=== PATIENT | male | born 2000 | race Caucasian/White ===

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

== ENCOUNTER 2021-10-05 18:14 | Emergency (ER) | payer OTHER, SELFPAY | END 2021-10-05 20:48 | disposition left against medical advice (07) | PROVIDERS: Emergency Provider Emergency Medicine; PCP Specialist | DX: S99.922A Unspecified injury of left foot, initial encounter (principal); X58.XXXA Exposure to other specified factors, initial encounter; Y93.9 Activity, unspecified; Y92.9 Unspecified place or not applicable; Y99.9 Unspecified external cause status ==

== ENCOUNTER 2021-10-06 12:22 | Emergency (ER) | payer OTHER, SELFPAY ==
--- NOTE | ~2021-10-06 | XR_ITS ---
EXAMINATION: XR FOOT, LEFT CLINICAL INFORMATION: Left foot injury COMPARISON: None TECHNIQUE: AP, lateral, and oblique views of the left foot. FINDINGS: The bones and soft tissues are normal. No fracture. Alignment is anatomic. Joint spaces are maintained. XR/XR foot LT min 3V IMPRESSION: Normal left foot.
[2021-10-06 13:34] VITALS: BP 127/73; PULSE 69; RESP 18; TEMP 36.8; O2SAT 97; BMI 27.2
--- NOTE | 2021-10-06 14:16 | ED.LOWEXIN ---
HPI - Extremity Injury (Lower) General Chief Complaint: Extremity Injury, Lower Stated Complaint: lt foot injury Time Seen by Provider: 10/06/21 14:16 Source: patient Mode of arrival: ambulatory Limitations: no limitations History of Present Illness HPI Narrative: 21 yo male presenting with left foot pain s/p basketball injury yesterday. He states when he was coming down he somehow landed really funny and a crisscross position of his legs. he had immediate pain to the top of his left foot and was unable to walk on it. He use ice and took some Motrin last night with some improvement. He woke up this morning with significant bruising to his left foot and some swelling as well. He came in for evaluation to make sure it is not broken. He is still unable to bear any weight on his left foot due to pain. He denies any numbness or tingling. No other injuries. MD complaint: foot injury Onset (ago): day(s) (1) Injury: Left: foot Type of Injury: blunt Place: street/outdoors Severity: moderate Severity scale (1-10): 7 Relieving factors: immobilization Exacerbating factors: weight bearing, movement and palpation Context: fall and jumping Associated symptoms: swelling and unable to bear weight Other symptoms: none Treatments prior to arrival: cold therapy Related Data Previous Rx's Medication Instructions Recorded ibuprofen 600 mg tablet 600 mg PO Q8H PRN #14 tab 10/06/21 Allergies Allergy/AdvReac Type Severity Reaction Status Date / Time amoxicillin [AMOXICILLIN] Allergy Intermediate RASH Verified 10/06/21 13:33 Review of Systems Review of Systems: Constitutional: No Fever, No Chills Cardiovascular: No Chest Pain, No SOB Gastrointestinal: No Nausea, No Vomiting Musculoskeletal: + joint pain, No Myalgias Skin: No Skin Lesions, No rash Neuro: No Weakness, No Numbness Psych: + Anxiety/Panic, No Depression Heme/Lymph: + Bruising PMFSH Past Medical History Medical History (Updated 10/06/21 @ 14:21 by GURPREET Lanza) No pertinent past medical history Social History Social History Advance Directives: No Advance Directives Information Provided: No Physical Exam Vital Signs: Vital Signs: Last Vital Signs Temp 98.2 F 10/06/21 13:34 Pulse 69 10/06/21 13:34 Resp 18 10/06/21 13:34 BP 127/73 10/06/21 13:34 Pulse Ox 97 10/06/21 13:34 Body Mass Index 27.2 Appearance: Alert. Oriented X3. No acute distress. HEENT: normal inspection CVS: Normal heart rate and rhythm. Pulses normal. Respiratory: No respiratory distress. Skin: Skin warm and dry. Normal skin color. Normal skin turgor. No rashes. Extremities: Left anterior foot with ecchymosis and swelling from great toe to the middle portion of the foot. Tenderness over the 1st and 2nd metatarsals. able to move all toes, capillary refill less and 3 seconds. Foot is warm and well perfused. No ankle tenderness or swelling. Neuro: Oriented X 3. No motor deficit. No sensory deficit. Unable to assess gait due to pain Course Course Course Narrative: 21-year-old male presents to the ER for evaluation of left anterior foot pain, swelling, bruising after falling during a basketball game yesterday. He is unable to bear weight. X-ray today shows no acute fracture. An Baltazar wrap was placed for compression and support. Will treat for sprain and have him follow-up with his doctor. Critical Care Time Critical Care Time Critical Care Time: No Discharge Plan Discharge Clinical Impression: Contusion of foot Qualifiers: Encounter type: initial encounter Laterality: left Qualified Code(s): S90.32XA - Contusion of left foot, initial encounter Patient Disposition: Home, Self-Care Instructions: Foot Contusion (ED) Additional Instructions: Your x-ray today was normal. Rest and elevate your foot when possible. Recommend BALTAZAR wrap for support and compression. Use ice several times per day for the next 48 hours. You may bear weight as tolerated. If pain is too severe, use crutches until better. Take Motrin and/or Tylenol as needed for pain. Follow up with your doctor as needed. Prescriptions: New ibuprofen 600 mg tablet 600 mg PO Q8H PRN (Reason: pain) Qty: 14 RF: 0 Stand Alone Forms: Work/School Release Interventions: ED Discharge Assessment Last Done: 10/06/21 14:38 Discharge Date/Time: 10/06/21 14:40
== END 2021-10-06 14:40 | disposition home or self-care (01) ==
PROVIDERS: Emergency Provider Emergency Medicine; PCP Specialist
DX: S90.32XA Contusion of left foot, initial encounter (principal); M79.672 Pain in left foot; Y93.67 Activity, basketball; Y92.310 Basketball court as the place of occurrence of the external cause; Y99.9 Unspecified external cause status
CPT/HCPCS: 73630; 99283

== ENCOUNTER 2025-05-20 23:16 | Emergency (ER) | payer OTHER, SELFPAY ==
[2025-05-20 23:37] VITALS: BP 114/57; PULSE 56; RESP 18; TEMP 36.7; O2SAT 98; BMI 24.7
[2025-05-21 02:01] VITALS: BP 111/71; PULSE 55; TEMP 36.6; O2SAT 97
--- NOTE | 2025-05-21 02:27 | ED_ITS ---
HPI - General Adult General Chief complaint: Eye Problems Stated complaint: Right eye injury Time Seen by Provider: 05/21/25 00:45 Source: patient Limitations: no limitations History of Present Illness ED Provider: Leticia Sotelo PA-C HPI narrative: 25-year-old male presents with right eye pain. Patient states he was poked in the eye while playing basketball. He developed redness of the sclera. Patient is not diabetic he does not wear contact lenses. Related Data Previous Rx's ?Medication ?Instructions ?Recorded ibuprofen 600 mg tablet 600 mg PO Q8H PRN pain #14 t abs 10/06/21 erythromycin 5 mg/gram (0.5 %) eye 0.5 inch ophthalmic (eye) QID 5 05/21/25 ointment days #3.5 grams ketorolac 0.5 % eye drops 1 drp ophthalmic (eye) QID P RN 05/21/25 pain #5 mL Allergies Allergy/AdvReac Type Severity Reaction Status Date / Time amoxicillin (AMOXICILLIN) Allergy Intermediate RASH Verified 05/20/25 23:38 Review of Systems Review of Systems: Yes all other systems are reviewed and are negative Constitutional: Constitutional: Denies fatigue and Denies fever(s) Eyes: Eyes: Denies change in vision, Reports irritation, Reports eye pain and Denies requires corrective lenses Endocrine: Endocrine: Denies fatigue PMF Past Medical History Attestation statement: The following information was validated with the patient. Medical History (Updated 05/21/25 @ 02:32 by GURPREET Moy) No pertinent past medical history Social History Social History Advance Directives: No Advance Directives Information Provided: No Do you have a plan to hurt others: No Plan Physical Exam ED Vital Signs: Vital Signs - 24 hr 05/20/25 23:37 05/21/25 02:01 05/21/25 02:41 Temperature 98.1 F 97.9 F 97.9 F Pulse Rate 56 55 55 Respiratory Rate 18 16 Blood Pressure 114/57 L 111/71 111/71 Pulse Oximetry 98 97 97 Oxygen Delivery Method Room Air Room Air Room Air BMI result Body Mass Index 24.7 Const Other: Alert Orientation/consciousness: patient oriented x3 Eyes Other: Subconjunctival hemorrhage noted that has diffuse, no foreign body noted with inversion of the eyelid, no Luis A sign, with fluorescein stain no corneal abrasion noted Resp Effort & Inspection: normal respiratory effort Cardio Other: Normal peripheral perfusion Skin Other: Warm dry no rash Neuro General: patient oriented x3, gait normal, no focal motor deficits and CN's II- XI intact bilaterally Medications Administered Discontinued Medications Generic Name Dose Route Start Last Admin Trade Name Gabinoq PRN Reason Stop Dose Admin Erythromycin 1 cm 05/21/25 02:32 05/21/25 02:39 Erythromycin Base 0.5% Oph Oin 1 Gm Tube EYE-RIGHT 05/21/25 02:33 1 cm ONCE ONE Administration Medical Decision Making Medical Decision Making MDM Narrative: 25-year-old male presents with right eye pain. Patient states he was poked in the eye while playing basketball. He developed redness of the sclera. Patient is not diabetic he does not wear contact lenses. No chronic issues History: Per patient I have considered the following differential diagnoses: Corneal abrasion, laceration, hyphema, subconjunctival hemorrhage, globe puncture/rupture Plan: Patient has subconjunctival hemorrhage, there was no evidence of a Luis A sign, there are no corneal abrasions. Discharge Plan Discharge Clinical Impression: Subconjunctival hemorrhage Patient Disposition: Home, Self-Care Additional Instructions: You have bleeding under the white part of your eye. This is called a subconjunctival hemorrhage. This will resolve with time. Use the ketorolac drops as needed for pain, use the erythromycin ointment as directed. I am providing you with a contact of our artificial plastic eye maker, you can call to make a follow up appointment. Prescriptions: New ketorolac 0.5 % drops 1 drp ophthalmic (eye) QID PRN (Reason: pain) Qty: 5 0RF erythromycin 5 mg/gram (0.5 %) ointment 0.5 inch ophthalmic (eye) QID 5 Days Qty: 3.5 0RF No Action ibuprofen 600 mg tablet 600 mg PO Q8H PRN (Reason: pain) Qty: 14 0RF Referrals: Krishna Ennis [Physician, Ophthalmology] Referral Note: Right subconjunctival hemorrhage Stand Alone Forms: Work/School Release Interventions: ED Discharge Assessment Last Done: 05/21/25 02:41 Discharge Date/Time: 05/21/25 02:42 Print Language: Palestinian
[2025-05-21] MEDS: Erythromycin Base 0.5% Oph Oin 1 GM TUBE 1 CM EYE-RIGHT (02:39)
[2025-05-21 02:41] VITALS: BP 111/71; PULSE 55; RESP 16; TEMP 36.6; O2SAT 97
== END 2025-05-21 02:42 | disposition home or self-care (01) ==
PROVIDERS: Emergency Provider Emergency Medicine
DX: H11.31 Conjunctival hemorrhage, right eye (principal)
CPT/HCPCS: 99283